=== PATIENT | male | born 1955 | race African-American/Black ===

== ENCOUNTER 2023-07-24 09:56 | Day surgery (SDC) | payer OTHER ==
[2023-07-22 15:34] VITALS: BMI 29.3
[2023-07-24] MEDS ORDERED: PROPOFOL 40 ML ONE (11:48)
== END 2023-07-24 13:05 | disposition home or self-care (01) ==
LOC: CSHSDC 09:56
PROVIDERS: ATTEND Internal Medicine Gastroenterology
PROC: 0DBN8ZZ Excision of Sigmoid Colon, Via Natural or Artificial Opening Endoscopic (ICD-10-PCS; principal; 2023-07-24)
DX: Z12.11 Encounter for screening for malignant neoplasm of colon (principal); K63.5 Polyp of colon; K64.8 Other hemorrhoids; K63.89 Other specified diseases of intestine; I10 Essential (primary) hypertension; E78.5 Hyperlipidemia, unspecified; E11.9 Type 2 diabetes mellitus without complications; Z86.010 Personal history of colon polyps; Z79.84 Long term (current) use of oral hypoglycemic drugs; Z79.899 Other long term (current) drug therapy
CPT/HCPCS: 88305; J2704